=== PATIENT | female | born 1940 | race Caucasian/White ===

== ENCOUNTER → 2016-07-12 | Outpatient (CLI) | payer OTHER ==
[~2016-07-12] MED LIST: AMLO2.5T PO; ASPEC81 PO; HYDC25 PO; MULT-513 PO; OMEG10007 PO; PARO1TAB27 PO; SIMV20TA2 PO
== END | disposition home or self-care (01) ==
LOC: C.PATHSPEC 15:44
PROVIDERS: ATTEND Dentist Oral and Maxillofacial Pathology
DX: D10.1 Benign neoplasm of tongue (principal)